=== PATIENT | female | born 1960 | race Caucasian/White ===

== ENCOUNTER 2022-07-11 09:33 | Emergency (ER) | payer OTHER, SELFPAY ==
--- NOTE | ~2022-07-11 | CT_ITS ---
EXAMINATION:CT diagnostic chest wo con DATE: 07/11/2022 12:11 INDICATION: Right breast pain. Right chest wall lipoma resection. TECHNIQUE: Computed tomography (CT) of the chest was performed without intravenous contrast. Automate d exposure control and iterative reconstruction technique were employed. The dose-length product (DLP ) was 140.52 mGy-cm. COMPARISON: None. FINDINGS: There is mild scarring at the lung apices. There is minimal atelectasis bilaterally. No ple ural effusion. The heart size is normal. No pericardial effusion. There is a fundoplication of the pr oximal stomach with the wrap above the diaphragm. There are multiple stones in left kidney measuring up to 4 mm. There is fat stranding in outer inferior right breast. There is severe cervical spondylos is and mild thoracic spondylosis. There is mild chronic anterior wedging of T8 vertebral body. IMPRESSION: 1. Fat stranding in outer inferior right breast, likely inflammation or scarring given the history of lipoma resection. 2. Fundoplication of the stomach with the wrap above the diaphragm. Reviewed, dictated and finalized at location A. IMPRESSION: 1. Fat stranding in outer inferior right breast, likely inflammation or scarrin g given the history of lipoma resection. 2. Fundoplication of the stomach with the wrap above the diaphragm.
[2022-07-11 09:39] VITALS: BP 144/69; PULSE 57; RESP 18; TEMP 36.4; O2SAT 100
--- NOTE | 2022-07-11 11:34 | ED.GENADULT ---
HPI - General Adult General Chief complaint: Unspecified Stated complaint: breast pain Time Seen by Provider: 07/11/22 11:04 History of Present Illness HPI narrative: Patient is a 62-year-old female here for evaluation of bilateral breast pain x3 weeks. Patient states that her breast will get swollen and inflamed throughout the day and over the past several days she has had a significant amount of pain in the right breast. States that she feels a lump. Has a history of a chest wall lipoma that was removed about a year ago by plastic surgeon, states that area has been hurting her well and she is concerned for recurrence. She contacted her primary care doctor who has ultrasound and mammogram ordered but patient states the pain is too severe to wait. She has attempted Tylenol without relief of her symptoms. No nipple discharge, nipple inversion, history of breast cancer. Related Data Allergies Allergy/AdvReac Type Severity Reaction Status Date / Time No Known Allergies Allergy Unverified 11/19/18 14:22 Review of Systems Review of Systems: Gen.: Denies fevers or chills Eyes: Denies eye pain or visual change ENT: Denies congestion Respiratory: Denies shortness of breath or cough CV: Denies chest pain or palpitations GI: Denies abdominal pain nausea, emesis or diarrhea denies burning, urgency, frequency or hematuria Musculoskeletal: Denies back pain or muscle pain Neuro: Denies numbness, tingling, weakness or focal weakness Skin: Denies rash Except as documented, all other systems reviewed and negative [facility] Social History Social History Smoking status: Never smoker Alcohol intake: current Exam Narrative: APPEARANCE:alert, oriented, NAD Head: Normocephalic and atraumatic. EYES: PERRLA/EOMI, conjunctivae clear NOSE: No nasal drainage EARS: External ear normal in appearance THROAT: Oropharynx is clear. Mucous membranes are moist. NECK: Supple. No adenopathy, no masses. RESPIRATORY: Airway patent, respirations nonlabored. Clear to auscultation bilaterally, no rales, rhonchi, wheezing. CARDIOVASCULAR: Regular rate and rhythm without murmurs, rubs, or gallops. ABDOMINAL: Normoactive bowel sounds. Soft, nontender, nondistended. No rebound tenderness or guarding. MUSCULOSKELETAL: No tenderness to palpation along the posterior or anterior chest wall. Breasts are symmetric. There is no nipple inversion. No masses palpated on exam. No fluctuance, induration, overlying erythema. No significant tenderness to palpation along either breast. NEURO: Normal speech. No focal neurologic deficits. SKIN: Skin is warm and dry. No rashes. PSYCHIATRIC: Normal affect/mood. Course Vital Signs Vital signs: Vital Signs Temperature 97.6 F 07/11/22 09:39 Pulse Rate 57 L 07/11/22 09:39 Respiratory Rate 18 07/11/22 09:39 Blood Pressure 144/69 H 07/11/22 09:39 Pulse Oximetry 100 07/11/22 09:39 Oxygen Delivery Room Air 07/11/22 09:39 Temperature 97.6 F 07/11/22 09:39 Pulse Rate 57 L 07/11/22 09:39 Respiratory Rate 18 07/11/22 09:39 Blood Pressure 144/69 H 07/11/22 09:39 Pulse Oximetry 100 07/11/22 09:39 Oxygen Delivery Room Air 07/11/22 09:39 Medical Decision Making MDM Narrative Medical decision making narrative: Patient is a 62-year-old female here for evaluation of a painful mass that she has felt in her right breast and pain at the site where she had a lipoma removed last year for the past several weeks. No ischemic type chest pain; pain is localized to the breast where she feels a mass. She has had a mammogram and ultrasound ordered by her primary doctor but patient states the pain is too severe to wait. VSS. There is no mass palpated on my exam. No gross abnormalities, no redness, fluctuance or induration, nipple discharge or inversion. Ultrasound was ordered but I was informed that this cannot be done in the ED without a mammogram first, and unfortunately cannot order any mammogram out
== END 2022-07-11 14:27 | disposition home or self-care (01) ==
PROVIDERS: Emergency Provider Physician Assistant
DX: N63.0 Unspecified lump in unspecified breast (principal)
CPT/HCPCS: 71250; 99284

== ENCOUNTER 2024-11-01 19:33 | Emergency (ER) | payer OTHER, SELFPAY ==
--- NOTE | ~2024-11-01 | XR_ITS ---
EXAMINATION: [id number] Exam Date/Time: 11/01/2024 19:48 CDT HISTORY: hit left ribs against counter when jumping up Comparison: None. RESULT: Lines, tubes, and devices: Surgical clip over the left upper quadrant GE junction. Lungs and pleura: Clear. Cardiomediastinal silhouette: Left hemidiaphragm elevation, otherwise unremarkable. Other: No acute upper abdominal finding. Nondisplaced left anterior ninth and 10th rib fractures IMPRESSION: No acute cardiopulmonary process. Nondisplaced left anterior ninth and 10th rib fractures. Reviewed, dictated and finalized at location K.
--- OUTSIDE RECORDS SUMMARY | 2024-11-01 19:37 | XMS_ITS | Referral Summary ---
Author Organization [facility] Address [address] [place] [address] Care Team Providers Care Email Marketing Coordinator Name Role Phone Amelie Boone MD Primary Care Provider Oskar Barrera MD Unavailable [phone] Joey Talley MD Unavailable [phone] Sarah Hanks NP Unavailable Encounters Date Type Department Care Team Description 08/01/2024 11:00 AM CDT Office Visit [facility] [address] [place] [address] Nausea (Primary Dx); Weak from Last 3 Months Allergies Active Allergy Reactions Criticality Noted Date Comments Adhesive Redness Low 03/30/2021 Medications progesterone (PROMETRIUM) 200 mg capsule 03/21/20 22 Active estradioL (ESTRACE) 2 mg tablet Take 0.5 tablets (1 mg total) by mouth daily 10/25/19 23 Active semaglutide (Ozempic) 0.25 mg or 0.5 mg (2 mg/3 mL) pen injector injection Inject 0.5 mg under the skin every 7 days Active aspirin (Enteric Coated Aspirin) 81 mg enteric coated tabletIndications:PA F (paroxysmal atrial fibrillation) Take 1 tablet (81 mg total) by mouth daily 02/14/20 23 Active Additional Information Patient not taking.Reported on 03/07/2024 multivitamin-calcium carb tablet,chewable Take 1 tablet by mouth daily Active Ibsrela 50 mg tablet Take 1 tablet by mouth 2 (two) times a day 03/16/20 Active fluconazole (DIFLUCAN) 200 mg tablet TAKE 1 TABLET BY MOUTH EVERY DAY AT 1ST SIGN OF SYMTPOMS 03/15/20 Active digoxin (LANOXIN) 125 mcg (0.125 mg) tabletIndications:PS VT (paroxysmal supraventricular tachycardia),PAF (paroxysmal atrial fibrillation) Take 1 tablet (125 mcg total) by mouth daily 90 tablet 3 11/08/19 24 025 Active Active Problems Problem Noted Date Diagnosed Date Cervical radiculopathy 02/07/2023 Lumbar radiculopathy 02/07/2023 Lumbar spondylosis 02/07/2023 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 I have recommended an auto titrating CPAP unit with a range of 5-15 cm water pressure with heated humidifier through [employer]. The patient will follow-up with me in 2 months. Murmur, heart 04/14/2022 PAF (paroxysmal atrial fibrillation) 04/11/2022 PSVT (paroxysmal supraventricular tachycardia) 0 04/11/2022 Small intestinal bacterial overgrowth (SIBO) Assessment & Plan (02/17/2022 4:59 PM CARD DOFFER): Thirst these course of Xifaxan. Call if symptoms recur following that. 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 Cooper in [place], [place]. July 2017, she developed an URI with right breast inflammation and swelling. She presented to [facility] (Dr. Mosquera) who evaluated her for a cosmetic revision and planned to remove both implants and perform mastopexies as well. Unfortunately, Her issues with erythema and swelling continued, and she eventually presented to the [facility] ER on 08/15/17 for evaluation. She was admitted to the hospitalist service, and Dr. Jarrett was consulted. The patient underwent right implant removal with cultures (negative) and near-total capsulectomy and closure. The pathology revealed chronic inflammation[facility], [facility], implant capsule, removal: - Histiocytic, neutrophilic and lymphocytic infiltrate with abscess formation and granulation tissue, see microscopic and comment. - No evidence of hematopoietic malignancy. [facility] She subsequently underwent left breast implant capsulectomy and bilateral breast mastopexy. Did not have implants placed. Dr. Gee November 2017 - [facility] I & D left breast persistent seroma. Chest discomfort 04/08/2021 History lipoma of breast 02/10/2021 Overview (04/16/2021): 02/22/2021 Breast, right, 8 o'clock, 10 cm from nipple, needle core biopsy: - Fibroadipose tissue, fibrovascular tissue, nerve tissue, and skeletal muscle - No evidence of malignancy The differential diagnosis includes normal tissue elements, hamartoma and intramuscular lipoma. Patient desired excision as she felt this was enlarging and was painful to her. 04/08/2021 Breast, right, Mag seed localization excisional biopsy: - Predominantly adipose tissue and skeletal muscle tissue, compatible with lipoma with partial intramuscular component, with previous biopsy site and scarring - Benign lymph node with reactive sinus histiocytosis - Mag seed present - Negative for in situ or invasive malignancy Dense breast tissue on mammogram 02/13/2020 Fibrocystic breast changes of both breasts 02/12 Pain in right toe(s) 07/06/2019 Schatzki's ring 03/18/2019 Complication of breast implant 08/16/2017 Pain of breast 07/17/2017 Overview (02/07/2023): 10/07/2020 - [facility] Negative screening mammogram She saw Dr. Saba - (Cardio thoracic surgeon) - Given negative imaging. No further treatment options were recommended. 11/25/2020 [facility] - Right breast sonogram for pain and intermittent swelling of chest wall. No focal fluid collection. The pectoralis muscle is normal. The axillary nerve is normal. Within the deep subcutaneous fat of the right chest wall is an echogenic area fat that corresponds to the area of tenderness. This measures 3.7 x 1.4 x 1.0 cm. Unclear if extending into the chest wall musculature. This is suspected to represent an unencapsulated benign lipoma versus fat necrosis and scarring from prior surgery. Recommend MRI of the chest wall with and without contrast. MRI 12/31/2020 [facility] No focal masses in the right lateral chest wall cassette corresponding to the patient's palpable abnormality. No abnormal signal in the ribs. Lungs are clear. Chest wall muscles are normal in appearance. 01/11/[address] Darren Parrish (pain management) [place] that clinically the symptoms appeared to be from intercostal neuritis. Possibly lipoma producing pressure on nerve. Recommended second opinion thoracic surgery to see if any other treatments before intercostal nerve blocks. 01/19/2021 - 2nd Opinion Dr. Talley ( Thoracic surgeon) He could not correlate her ultrasound findings with any MR or physical exam findings and could not offer her surgical resection for relief of her pain. I offered to present her case at our multidisciplinary chest Conference with [facility] chest radiologist to review her studies. She understands my reluctance to offer her surgical intervention without a more clear radiographic target. She understands pain injection from her picture painter is a reasonable least invasive approach. Dr. Talley presented this case at his multidisciplinary chest and pulmonary conference yesterday. The recommendation was for referral to a breast specialist or intercostal nerve block by her pain specialist. She chose the former was referred to Dr. Barrera. 02/02/2021 - [facility] Right diagnostic mammogram and sonogram. Images of the palpable area of concern right breast are similar in appearance to ultrasound at this facility performed 02/02/2021, allowing for differences in technique. Consider ultrasound-guided core needle biopsy for tissue diagnosis. BI-RADS Category 4: Suspicious-biopsy should be considered Final pathology revealed intramuscular lipoma. Breast pain; Location: None Progress: Stable Added By: Kelly Pacheco Add to Current Problems: YES ProblemStatus: Resolve Anxiety and depression 11/30/2016 Hot flashes 11/30/2016 Female genital symptoms 07/13/2016 Overview (02/07/2023): Pelvic pain; Location: None Progress: Stable Added By: Brandie Rock Add to Current Problems: YES ProblemStatus: Resolve Pelvic pain; Location: None Progress: Stable Added By: Nancy Poole Add to Current Problems: YES ProblemStatus: Current Pelvic pain; Progress: Stable Added By: Susy Dodge Add to Current Problems: NO ProblemStatus: Resolve; Start Date : 09/04/2014 Urinary urgency 07/08/2016 Overview (02/07/2023): Urgency of urination; Progress: Stable Added By: Kerline Larson Add to Current Problems: NO ProblemStatus: Resolve Urgency of urination; Location: None Progress: Stable Added By: Kerline Larson Add to Current Problems: YES ProblemStatus: Current Syncope and collapse 2016 Overview (02/07/2023): Syncope; Progress: Stable Added By: Georgie Gilliam Add to Current Problems: NO ProblemStatus: Resolve Syncope and collapse; Progress: Stable Added By: Georgie Gilliam Add to Current Problems: YES ProblemStatus: Current General symptom 06/11/2015 Overview (02/07/2023): Heat intolerance; Progress: Stable Added By: Lamar Hughes Add to Current Problems: NO ProblemStatus: Resolve Calculus of kidney 08/17/2013 Overview (07/07/2016): Renal calculi History of malignant melanoma 08/17/2013 Overview (07/07/2016): History of malignant melanoma Terminal esophageal web 08/17/2013 Overview (07/07/2016): Schatzki's ring Family history of coronary artery disease 2013 Overview (07/08/2016): Family history of early CAD Gastroesophageal reflux disease 11/23/2011 Overview (02/07/2023): GERD (gastroesophageal reflux disease) Assessment & Plan (02/17/2022 4:58 PM CARD DOFFER): Okay to reduce to 20 mg daily after the current prescription of 40 mg omeprazole is finished. Urinary tract infection 01/31/2011 Resolved Problems Problem Noted Date Diagnosed Date Resolved Date LEONOR (obstructive sleep apnea) 12/19/2022 12/19/2022 Assessment & Plan (12/19/2022 9:27 AM CDT): The patient was diagnosed with obstructive sleep apnea in April 2022. I will have an auto titrating CPAP unit prescribed with a range of 5-15 cm water pressure with heated humidifier through [employer]. She will follow up here in 2 months. Sleep-disordered breathing 04/11/2022 0 12/19/2022 Epigastric pain 12/13/2021 04/14/2022 Assessment & Plan (02/17/2022 4:57 PM CARD DOFFER): Patient is feeling much better at this time even without medication. She is currently going through a course of Xifaxan. She found that after taking a few of the dicyclomine and some Metamucil she felt immediately improved. Still has the problem with alcohol. Currently on omeprazole 40 mg daily and wants to be reduced to 20 mg. Endoscopy shows recurrence of hiatus hernia a 2 cm. The wrap appeared intact however the patient is able to vomit tell me that it may not be quite as tight as is necessary. Bloating 12/13/2021 04/14/2022 Post-operative state 04/21/2021 023 Arthritis of knee 08/17/2013 04/14/2022 Overview (07/08/2016): Arthritis of knee Immunizations Immunization Administration Dates Next Due Influenza, Quadrivalent, Spl it, Preservative Free, Intradermal 02/02/2015 Influenza, Split 01/17/2011,03/13/2010, 9 Influenza, Trivalent, IM (MDV) 01/05/2013 Td, adsorbed 04/03/2002 Tdap 08/04/2011 Social History Tobacco Use Types Packs/Day Years Used Date Smoking Tobacco: Never Smokeless Tobacco: Never Tobacco Cessation:Counseling Given: Not Answered Alcohol Use Standard Drinks/Week Comments Yes 0 (1 standard drink = 0.6 oz pur e alcohol) AUDIT-C Answer Date Recorded Q1: How often do you have a drink containing alc ohol? 2-4 times a month 12/17/2021 Q2: How many drinks containi ng alcohol do you have on a typical day when you are drinking? 1 or 2 12/17/2021 Q3: How often do you have si x or more drinks on one occasion? Never 12/17/2021 Comments No Sex and Gender Information Value Date Recorded Sex Assigned at Not on file Legal Sex Female 7:45 PM CARD DOFFER Gender Identity Not on file Sexual Orientation Not on file Last Filed Vital Signs Vital Sign Reading Time Taken Comments Blood Pressure 122/74 08/01/2024 10:35 AM CDT Pulse 68 08/01/2024 10:34 AM CDT Temperature 36.4 C (97.5 F) 03/12/2023 6:15 AM CARD DOFFER Respiratory Rate 16 03/12/2023 8:24 AM CARD DOFFER Oxygen Saturation 97% 03/07/2024 1:36 PM CARD DOFFER Inhaled Oxygen Concentration - - Weight 66.2 kg (146 lb) 03/07/2024 1:36 PM CARD DOFFER Height 160 cm (5' 3) 03/07/2024 1:36 PM CARD DOFFER Body Mass Index 25.86 03/07/2024 1:36 PM CARD DOFFER Plan of Treatment Not on file Medical Devices Implanted Type Area Food Service Steward Device Identifier Shelf Expiration Date Model / Serial / Lot [employer] [id number] [id number] 18ga 7cm Marker Breast Biopsy - [id number] Implanted:Qty: 1 on 03/30/[address] [facility] [employer] [id number] / / Procedures Procedure Name Priority Date/Time Associated Diagnosis Comments SCREENING MAMMOGRAM BILATERAL W GERMAN Schedule Routine, Read Routine (OP Routine) 07/15/2024 2:43 PM CDT Screening mammogram, encounter for from Last 3 Months or Most Recently Relevant to Health Maintenance Results * Screening Mammogram Bilateral W German (07/15/2024 2:43 PM CDT) Anatomical Region Laterality Modality Breast Bilateral Mammography Narrative 07/16/2024 5:01 PM CDT Mammogram Technique: Bilateral Digital Breast Tomosynthesis, Bilateral C-view 2D Screening mammogram. Views obtained: bilateral craniocaudal and bilateral mediolateral oblique. Computer Aided Detection was performed. Mammogram Findings: The present examination has been compared to prior imaging studies performed at [facility] on 10/13/2020 and 01/20/2023, and at [place], [place] on 10/12/2021. The breasts are heterogeneously dense, which may obscure small masses. There is no suspicious abnormality in either breast. Impression: There is no mammographic evidence of malignancy. Annual screening mammography is recommended. If supplemental screening is desired, breast MRI would be recommended in this patient with heterogeneously dense breasts. OVERALL FINAL ASSESSMENT: BI-RADS CATEGORY 1: Negative. Procedure Note Aminata Barth MD - 07/16/2024 Mammogram Technique: Bilateral Digital Breast Tomosynthesis, Bilateral C-view 2D Screening mammogram. Views obtained: bilateral craniocaudal and bilateral mediolateral oblique. Computer Aided Detection was performed. Mammogram Findings: The present examination has been compared to prior imaging studies performed at [facility] on 10/13/2020 and 01/20/2023, and at [place], [place] on 10/12/2021. The breasts are heterogeneously dense, which may obscure small masses. There is no suspicious abnormality in either breast. Impression: There is no mammographic evidence of malignancy. Annual screening mammography is recommended. If supplemental screeningis desired, breast MRI would be recommended in this patient with heterogeneously dense breasts. OVERALL FINAL ASSESSMENT: BI-RADS CATEGORY 1: Negative. us Self Screening Mammogram IMG MAMMO PROCEDURES Fi nal Result from Last 3 Months or Most Recently Relevant to Health Maintenance Insurance [facility] [place] [address] [place] [address] Member Subscriber Plan / Payer (Ef fective 2022-Present) Name:Abby Wright Relation to Subscriber:Self Name:Abby Wright Payer ID:[id number] ([facility]) Type:[facility] HMO/PPO Address: [place] [phone] Advance Directives For more information, please contact: [phone] * Full Code (Latest Code Status on File) Date Activated Date Inactivated Comments 12/20/2021 9:12 AM 12/20/2021 3:10 PM Care Teams Email Marketing Coordinator Relationship Specialty Start Date End Date Amelie Boone MD PCP - General Family Medicine 02/02/21 Oskar Barrera MD [address] [facility] [address] [address] Consulting Physician Surgical Oncology 03/17/21 Joey Talley MD [address] [facility] [address] [place] [address] Referring Physician Cardiothoracic Surgery 04/16/21 Sarah Hanks NP [address] [facility] [address] [place] [address] Nurse Practitioner Surgery 04/19/21
--- OUTSIDE RECORDS SUMMARY | 2024-11-01 19:37 | XMS_ITS | Clinical Summary ---
Author Organization [facility] Address [address] [place] [address] Care Team Providers Care Beverage Server Name Role Phone Amelie Boone MD Primary Care Provider Oskar Barrera MD Unavailable [phone] Joey Talley MD Unavailable [phone] Sarah Hanks NP Unavailable Allergies Active Allergy Reactions Criticality Noted Date [...] mouth 2 (two) times a day 03/16/20 23 Active fluconazole (DIFLUCAN) 200 mg tablet TAKE [...] (SIBO) Assessment & Plan (02/17/2022 4:59 PM EMS COORDINATOR): Thirst these course of Xifaxan. Call if symptoms recur following that. Nausea and vomiting 12/13/2021 Abdominal pain 12/13/2021 Intercostal neuritis 10/20/2021 Myalgia 10/20/2021 History of elective breast augmentation 04/19/19 Overview (04/19/2021): She underwent bilateral breast augmentation with [employer] Siltex 350 cc implants filled to 400 cc [address] Cooper in [place], [place]. July 2017, she developed an URI with right breast inflammation and swelling. She presented to [facility] (Dr. Mosquera) who evaluated her for a cosmetic revision and planned to remove both implants and perform mastopexies as well. Unfortunately, Her issues with erythema and swelling continued, and she eventually presented to the [facility] ER on 08/15/17 for evaluation. She was admitted to the hospitalist service, and Dr. Jarrett was consulted. The patient underwent right implant removal with cultures (negative) and near-total capsulectomy and closure. The pathology revealed chronic inflammation. [facility] Dr. Gee Breast, right, implant capsule, removal: - Histiocytic, neutrophilic and lymphocytic infiltrate with abscess formation and granulation tissue, see microscopic and comment. - No evidence of hematopoietic malignancy. Kortney Gee She subsequently underwent left breast implant capsulectomy and bilateral breast mastopexy. Did not have implants placed. Dr. Gee November 2017 - [facility] I & D left breast persistent seroma. [...] of breast 07/17/2017 Overview (02/07/2023): 10/07/2020 - [facility] Negative screening mammogram She saw Dr. Saba [...] She saw Dr. Darren Parrish (pain management) [place] that clinically the symptoms appeared to be [...] case at our multidisciplinary chest Conference with [facility] chest radiologist to review her studies. She understands my reluctance to offer her surgical intervention without a more clear radiographic target. 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 Dr. Talley presented this case at his multidisciplinary chest and pulmonary conference yesterday. The recommendation was for referral to a breast specialist or intercostal nerve block by her pain specialist. She chose the former was referred to Dr. Barrera. 02/02/2021 - [facility] Right diagnostic mammogram and sonogram. 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 Overview (07/07/2016): Trent's ring Family history of coronary artery disease 2013 Overview (07/08/2016): Family history of early CAD Gastroesophageal reflux disease 11/23/2011 Overview (02/07/2023): GERD (gastroesophageal reflux disease) Assessment & Plan (02/17/2022 4:58 PM EMS COORDINATOR): Okay to reduce to 20 mg daily [...] 04/14/2022 Assessment & Plan (02/17/2022 4:57 PM EMS COORDINATOR): Patient is feeling much better at this [...] 08/17/2013 04/14/2022 Overview (07/08/2016): Arthritis of knee Encounters Date Type Department Care Team Description 08/01/2024 11:00 AM CDT Office Visit [facility] [address] [place] [address] Nausea (Primary Dx); Weak from Last 3 Months Immunizations Immunization Administration Dates Next Due Influenza, Quadrivalent, Spl it, Preservative Free, Intradermal 02/02/2015 Influenza, Split 01/17/2011,03/13/2010, 9 Influenza, Trivalent, IM (MDV) 01/05/2013 Td, adsorbed 04/03/2002 Tdap 08/04/2011 Surgical History Surgery Date Site/Laterality Comments BREAST BIOPSY 02/22/2021 Right ENDOMETRIAL ABLATION BREAST SURGERY 08/16/2017 Right BREAST MAMMARY IMPLANTS REMOVAL AND WASHOUT BLADDER SUSPENSION EXTRACORPOREAL SHOCK WAVE LITHOTRIPSY CYSTOSCOPY W/ LASER LITHOTRIPSY UPPER GASTROINTESTINAL ENDOSCOPY 12/20/2021 No histopathologic abnormality UPPER GASTROINTESTINAL ENDOSCOPY 12/18/2018 BREAST CAPSULECTOMY 10/19/2017 Left ID SUSPENSION OF BREAST CAPSULECTOMY BREAST MAMMARY IMPLANTS REMOVAL OR EXCHANGE BREAST MASTOPEXY INCISION AND DRAINAGE BREAST ABSCESS 11/22/2017 Left LEFT BREASR SEROMA BREAST EXCISIONAL BIOPSY 04/08/2021 Right Right Breast Mag Seed Localization Excisional Biopsy SKIN BIOPSY 07/06/2011 Right Right buttocks: COMPOUND MELANOCYTIC PROFLIFERATION; PRESENT AT MARGIN SKIN BIOPSY 11/05/2013 Right Right neck: BASAL CELL CARCINOMA, SUPERFICIAL MULTIFOCAL SKIN BIOPSY 04/15/2015 Right A. Right labia: INTRADERMAL MELANOCYTIC NEVUS B. Right breast: INTRADERMAL MELANOCYTIC NEVUS SKIN BIOPSY 02/02/2021 Left Specimen A. SKIN, left shoulder: BASAL CELL CARCINOMA, NODULAR TYPE HM DNA STOOL 08/04/2019 Negative SKIN BIOPSY 03/02/2021 Left Specimen A. SKIN, left shoulder: DERMAL SCAR RESIDUAL BASAL CELL CARCINOMA NOT IDENTIFIED SKIN BIOPSY 07/12/2022 Specimen A. SKIN, anterior crown: BASAL CELL CARCINOMA, INFILTRATIVE PATTERN Medical History Medical History Date Comments Mass of right breast Melanoma (HCC) leg and abdomen History of nephrolithiasis Chronic pain Follows with Dr. Roverto Parrish to has helped her in the past with several different pain injections involving neck, low back, and right foot. Arthritis Lumbar facet arthropathy Documen josué on MRI lumbar spine 2019 PONV (postoperative nausea a nd vomiting) PSVT (paroxysmal supraventri cular tachycardia) 04/11/2022 Palpitations 11/15/2022 PAF (paroxysmal atrial fibrillation) 04/11/2022 Murmur, heart 04/14/2022 Mixed hyperlipidemia 11/15/2022 Low blood pressure reading 11/15/2022 Family history of coronary a rtery disease 08/17/2013 Family history of early CAD Chest discomfort 04/08/2021 Abnormal stress test 11/15/2022 Terminal esophageal web 08/17/2013 Schatzki 's ring Small intestinal bacterial o vergrowth (SIBO) 02/17/2022 Schatzki's ring 03/18/2019 Nausea and vomiting 12/13/2021 Irritable bowel syndrome wit h both constipation and diarrhea 01/10/2023 Gastroesophageal reflux disease 11/23/2011 GERD (gastroesophageal reflux disease) Flank pain 11/15/2022 Abdominal pain 12/13/2021 Vaginitis 02/07/2023 Urinary urgency 07/08/2016 Urgency of urina tion; Progress: Stable Added By: Kerline Larson Add to Current Problems: NO ProblemStatus: Resolve Urgency of urination; Location: None Progress: Stable Added By: Kerline Larson Add to Current Problems: YES ProblemStatus: Current Urinary tract infection 01/31/2011 Recurrent seroma of breast 02/07/2023 Pain of breast 07/17/2017 10/07/2020 - [facility] Negative screening mammogramShe saw Dr. Saba - (Cardio thoracic surgeon) - Given negative imaging. No further treatment options were recommended. 11/25/2020 [facility] - Right breast sonogram for pain and intermittent swelling of chest wall. No focal fluid collection. The pectoralis muscle is normal. The axillary nerve is normal. Within the deep History of elective breast augmentation 04/19/19 She underwent bilateral breast augmentation with [employer] Siltex 350 cc implants filled to 400 cc [address] Cooper in [place], [place]. July 2017, she developed an URI with right breast inflammation and swelling. She presented to [facility] (Dr. Mosquera) who evaluated her for a cosmetic revision and planned to remove both implants and perform mastopexies as well. Unfortunately, Her Fibrocystic breast changes o f both breasts 02/13/2020 Female genital symptoms 07/13/2016 Pelvic p ain; Location: None Progress: Stable Added By: Brandie Rock Add to Current Problems: YES ProblemStatus: Resolve Pelvic pain; Location: None Progress: Stable Added By: Nancy Poole Add to Current Problems: YES ProblemStatus: Current Pelvic pain; Progress: Stable Added By: Susy Dodge Add to Current Problems: NO ProblemStatus: Resolve; Start Date Dense breast tissue on mammogram 02/13/2020 Complication of breast implant 08/16/2017 Calculus of kidney 08/17/2013 Renal calculi History of malignant melanoma 08/17/2013 Hi story of malignant melanoma History lipoma of breast 02/10/2021 021 Breast, right, 8 o'clock, 10 cm from nipple, needle core biopsy: - Fibroadipose tissue, fibrovascular tissue, nerve tissue, and skeletal muscle - No evidence of malignancy The differential diagnosis includes normal tissue elements, hamartoma and intramuscular lipoma. Patient desired excision as she felt this was enlarging and was painful to her. 04/08/2021 Breast, Anxiety and depression 11/30/2016 Sacroiliitis 02/07/2023 Pain in right toe(s) 07/06/2019 Myalgia 10/20/2021 Yao's neuroma of right foot 02/07/2023 Lumbar spondylosis 02/07/2023 Lumbar radiculopathy 02/07/2023 Intercostal neuritis 10/20/2021 Cervical radiculopathy 02/07/2023 LEONOR (obstructive sleep apnea) 04/25/2022 Syncope and collapse 2016 Syncope; Pr ogress: Stable Added By: Georgie Gilliam Add to Current Problems: NO ProblemStatus: Resolve Syncope and collapse; Progress: Stable Added By: Georgie Gilliam Add to Current Problems: YES ProblemStatus: Current Hot flashes 11/30/2016 General symptom 06/11/2015 Heat intolerance ; Progress: Stable Added By: Lamar Hughes Add to Current Problems: NO ProblemStatus: Resolve Chronic fatigue 11/15/2022 Family History Medical History Relation Name Comments Atrial fibrillation Father Diabetes type II Father Stroke Father age 87 of multiple strokes Testicular cancer Father Valvular heart disease Father Depression Mother Stroke Mother of CVA, ag e 84 Relation Name Status Comments Father Mother Social History Tobacco Use Types Packs/Day Years [...] on file Legal Sex Female 7:45 PM EMS COORDINATOR Gender Identity Not on file Sexual Orientation Not on file Obstetrics History Last Filed Vital Signs Vital Sign Reading Time Taken Comments Blood Pressure 122/74 08/01/2024 10:35 AM CDT Pulse 68 08/01/2024 10:34 AM CDT Temperature 36.4 C (97.5 F) 03/12/2023 6:15 AM EMS COORDINATOR Respiratory Rate 16 03/12/2023 8:24 AM EMS COORDINATOR Oxygen Saturation 97% 03/07/2024 1:36 PM EMS COORDINATOR Inhaled Oxygen Concentration - - Weight 66.2 kg (146 lb) 03/07/2024 1:36 PM EMS COORDINATOR Height 160 cm (5' 3) 03/07/2024 1:36 PM EMS COORDINATOR Body Mass Index 25.86 03/07/2024 1:36 PM EMS COORDINATOR Plan of Treatment Health Maintenance Due Date Last Done Comments Cervical Cancer Screening 1962 Colon Cancer Screening-Colonoscopy 1962 Depression Screening 1962 Hepatitis C Screening 1962 Hepatitis B Screening 1980 Regular Well Visit/Exam 18-64 1980 Zoster Vaccine (2 of 2) 08/29/2019 07/04/2019 Covid-19 Vaccine ( season) 2023 11/11/2020, 07/30/2020 Influenza Vaccine (#1) 2024 2, 01/01/2019, 01/22/2018, Additional history exists Breast Cancer Screening-Mammogram 07/15/2025 07/15/2024, 09/22/2022, 10/12/2021, Additional history exists DTaP/Tdap/Td Vaccine (4 - Td or Tdap) 01/28/2032 01/27/2022, 11/30/2016, 08/04/2011, Additional history exists Pneumococcal vaccine <65 Aged Out 03/04/2019 No longer eligible based on patient's age to complete this topic Medical Devices Implanted Type Area Power Ballast Machine Operator Device Identifier Shelf Expiration Date Model / Serial / Lot vocaltap [id number] Magseed 18ga 7cm Marker Breast Biopsy - [id number] Implanted:Qty: 1 on 03/30/2021 at [facility] vocaltap [id number] / / Procedures Procedure Name Priority Date/Time [...] compared to prior imaging studies performed at [facility] on 10/13/2020 and 01/20/2023, and at [facility], [place], [place] on 10/12/2021. The breasts are heterogeneously [...] compared to prior imaging studies performed at [facility] on 10/13/2020 and 01/20/2023, and at [facility], [place], [place] on 10/12/2021. The breasts are heterogeneously [...] Most Recently Relevant to Health Maintenance Insurance [facility] Member Subscriber Plan / Payer (Ef fective 2022-Present) Name:Abby Wright Relation to Subscriber:Spouse Name:VICENTE WRIGHT Date of :1961 (Home) Address: [address] [place] [address] Payer ID:[id number] (NAIC) Type:[facility] HMO/PPO Address: [address] [facility] Advance Directives For more information, please contact: [phone] * Full Code (Latest Code Status on File) Date Activated Date Inactivated Comments 12/20/2021 9:12 AM 12/20/2021 3:10 PM Care Teams Beverage Server Relationship Specialty Start Date End Date Amelie Boone MD PCP - General Family Medicine 02/02/21 Oskar Barrera MD [address] [facility] [address] [place] [address] Consulting Physician Surgical Oncology 03/17/21 Joey Talley MD [address] [place] [address] Referring Physician Cardiothoracic Surgery 04/16/21 Sarah Hanks NP [address] [place] [address] Nurse Practitioner Surgery 04/19/21
--- OUTSIDE RECORDS SUMMARY | 2024-11-01 19:37 | XMS_ITS | Encounter Summary ---
Author Organization [facility] Healthcare Address [address] [place] [address] Care Team Providers Care Supplier Development Manager Name Role Phone Amelie Boone MD Primary Care Provider [phone] Oskar Barrera MD Unavailable [phone] Joey Talley MD Unavailable [phone] Sarah Hanks NP Unavailable [phone] Encounter Details Date Type Department Care Team (Late st Contact Info) Description 07/10/2024 Orders Only [facility] [place] [facility] [address] [place] [id number] Scanning, Provider Social History Tobacco Use Types Packs/Day Years Used Date Smoking Tobacco: Never Smokeless Tobacco: Never Alcohol Use Standard Drinks/Week Comments Yes 0 [...] on file Legal Sex Female 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 Gender Identity Not on file Sexual Orientation Not on file documented as of this encounter Plan of Treatment Not on file documented as of this encounter Procedures Procedure Name Priority Date/Time Associated Diagnosis Comments SCAN - LABS 07/10/2024 documented in this encounter Results * SCAN - LABS (07/10/2024) Provider Scanning Final Result documented in this encounter Visit Diagnoses Not on filedocumented in this encounter Care Teams Supplier Development Manager Relationship Specialty Start Date End Date Amelie Boone MD PCP - General Family Medicine 02/02/21 Oskar Barrera MD [address] [place] [address] Consulting Physician Surgical Oncology 03/17/21 Joey Talley MD [address] [place] [address] Referring Physician Cardiothoracic Surgery 04/16/21 Sarah Hanks NP [address] [place] [address] Nurse Practitioner Surgery 04/19/21 documented as of this encounter
--- OUTSIDE RECORDS SUMMARY | 2024-11-01 19:37 | XMS_ITS | Clinical Summary ---
Author Organization [facility] Address [address] [place] [address] Phone Care Team Providers Care Loan Collector Name Role Phone Elysia Swann MD Primary Care Provider [phone] Allergies Active Allergy Reactions Criticality Noted Date Comments Iodine Itching Low 11/22/2017 No issues with Contrast medium Medications progesterone micronized (PROMETRIUM) 100 mg Capsule Take 100 mg by mouth daily. 8 Active OTHER Estrogen/progest erone/testostero ne combination dissolvable tablet Active Vit C-Vit B-Adwmsh-HkIt-L utein (PRESERVISION) 226 mg-200 unit -5 mg-0.8 mg Capsule Take 1 Capsule by mouth daily. Active Active Problems Problem Noted Date Diagnosed Date Mastodynia 02/13/2020 Dense breast tissue on mammogram 02/13/2020 Fibrocystic breast changes of both breasts 02/12 Pain in right toe(s) 07/06/2019 Schatzki's ring 03/18/2019 History of endometriosis 03/18/2019 History of endometrial ablation 03/18/2019 History of breast augmentation 11/12/2017 Complication of breast implant 08/16/2017 Hot flashes 11/30/2016 Anxiety and depression 11/30/2016 Arthritis of knee 08/17/2013 Overview (03/18/2019): Overview: Arthritis of knee Calculus of kidney 08/17/2013 Overview (03/18/2019): Overview: Renal calculi Gastroesophageal reflux disease 08/17/2013 Overview (03/18/2019): Overview: GERD (gastroesophageal reflux disease) History of malignant melanoma 08/17/2013 Overview (03/18/2019): Overview: History of malignant melanoma Terminal esophageal web 08/17/2013 Overview (03/18/2019): Overview: Olivia hernandez Encounter for cosmetic surgery Recurrent seroma of breast Resolved Problems Problem Noted Date Diagnosed Date Resolved Date Acute mastitis 08/16/2017 10/29/2017 Cellulitis of breast 018 Immunizations Immunization Administration Dates Next Due (ADACEL/BOOSTRIX)(10 YR UP) TDAP VACCINE, 0.5ML, IM 11/30/2016,08/04/2011 (PREVNAR 13)(6 WKS UP) PNEUM OCOCCAL CONJUGATE (PCV13) 0.5 ML, IM 03/04/2019 (SHINGRIX)(50 YRS UP) ZOSTER VACCINE RECOMBINANT, 0.5 ML, IM 07/04/2019 (TDVAX)(7 YRS UP) TETANUS AN D DIPHTHERIA TOXOIDS, ADSORBED (2 LF OF TETANUS TOXOID AND 2 LF OF DIPHTHERIA TOXOID), 0.5ML (PF), IM 04/03/2002 INFLUENZA VACCINE QUADRIVALE NT 6 MOS UP CELL DERIVED PF IM 01/01/2019 INFLUENZA VACCINE QUADRIVALE NT 6 MOS UP PF IM 01/23/2018 Influenza Seasonal Unspecifi ed Formulation IM 01/17/2011,03/13/2010,02/01/2009 Influenza Vaccine Quad Split (18-64) Pf Id 02/02 Influenza Vaccine Tri Split 4+ Im 01/05/2013 Family History Medical History Relation Name Comments Diabetes Father Heart Disease Father Hypertension Father Heart Disease Maternal Grandfather Heart Disease Maternal Grandmother ADHD Mother memory loss Other Mother memory loss Relation Name Status Comments Father Maternal Grandfather (Age 65) Maternal Grandmother (Age 65) Mother Paternal Grandfather tubercu losis Paternal Grandmother old ag e Social History Tobacco Use Types Packs/Day Years Used Date Smoking Tobacco: Never Smokeless Tobacco: Never Tobacco Cessation:Counseling Given: Yes Alcohol Use Standard Drinks/Week Comments Yes 7 (1 standard drink = 0.6 oz pure alcohol) Social week, sometimes none and sometimes 7 Comments No Sex and Gender Information Value Date Recorded Sex Assigned at Not on file Legal Sex Female 3:29 PM CDT Gender Identity Not on file Sexual Orientation Not on file Last Filed Vital Signs Vital Sign Reading Time Taken Comments Blood Pressure 110/76 02/13/2020 12:05 PM PROMOTIONS ASSISTANT SALES MARKETING Pulse 63 12/16/2020 9:58 AM CDT Temperature 37.1 C (98.8 F) 02/09/2020 10:52 AM PROMOTIONS ASSISTANT SALES MARKETING Respiratory Rate 18 02/09/2020 2:00 PM PROMOTIONS ASSISTANT SALES MARKETING Oxygen Saturation 99% 12/16/2020 9:58 AM CDT Inhaled Oxygen Concentration - - Weight 63.5 kg (140 lb) 12/16/2020 9:58 AM CDT Height 160 cm (5' 3) 12/16/2020 9:58 AM CDT Body Mass Index 24.8 12/16/2020 9:58 AM CDT Plan of Treatment Health Maintenance Due Date Last Done Comments HPV/Cotest (21-29) 1983 CERVICAL CANCER SCREENING 1992 HPV/Cotest (30-65) 1992 PAP SMEAR 1992 FIT/FOBT Q 1 year 2007 Flex Sig/CT Colonography Q 5 years 2007 ZOSTER VACCINE (2 of 2) 08/29/2019 07/04/2019 BREAST CANCER SCREENING 02/22/2022 02/23/20 21, 10/07/2020, 02/11/2020, Additional history exists FIT-DNA Q 3 years 08/03/2022 08/04/2019 COLORECTAL SCREENING 05/06/2023 05/06/2020, 08/04/19 20 Colorectal Cancer Screening 05/06/2023 Preventative Visit- Commercial 04/03/2024 03/04/2019 , 11/30/2016 INFLUENZA VACCINE (#1) 2024 9, 01/23/2018, 02/02/2015, Additional history exists DTAP/TDAP/TD VACCINES (3 - T d or Tdap) 11/30/2026 11/30/2016, 08/04/2011, 04/03/2002 RSV VACCINE (60+ or ) (1 - 1-dose 75+ series) 2037 Medical Devices Implanted Type Area Air Hose Coupler Device Identifier Shelf Expiration Date Model / Serial / Lot Hemostat Susie Surg Mph Pwd 3gm [id number] - [id number] Implanted:Qty : 1 on 10/19/2017 by Joey Gee MD at [facility] Right: Breast CR [employer] 02/19/2019 [id number] / / [id number] Explanted Type Area Air Hose Coupler Device Identifier Shelf Expiration Date Model / Serial / Lot [place] Draft Explanted:Qty: 1 on 10/19/2017 by Joey Gee MD at [facility] Right: Breast Description:no information a vailable Breast Explanted:Qty: 1 on 08/16/2017 by Jennifer Jarrett MD at [facility] Right: Breast Description:right breastmamm meena implant Procedures Procedure Name Priority Date/Time Associated Diagnosis Comments MAMMO DIAG UNI RIGHT 3D BERNA W OR WO CAD Routine 02/11/2020 11:05 AM PROMOTIONS ASSISTANT SALES MARKETING Breast pain COLON CANCER SCREEN, STOOL DNA Routine 08/04/2019 1:00 PM CDT Screening for colon cancer from Last 3 Months or Most Recently Relevant to Health Maintenance Results * MAMMO DIAG UNI RIGHT 3D BERNA W OR WO CAD (02/11/2020 11:05 AM PROMOTIONS ASSISTANT SALES MARKETING) Anatomical Region Laterality Modality Breast Right Mammography 02/11/2020 11:0 7 AM PROMOTIONS ASSISTANT SALES MARKETING Impressions 02/11/2020 4:46 PM PROMOTIONS ASSISTANT SALES MARKETING IMPRESSION: No change and no mammographic evidence of malignancy. Routine follow-up is recommended. OVERALL FINAL ASSESSMENT: BI-RADS CATEGORY 1: Negative. DICTATION LOCATION: [facility] Narrative 02/11/2020 4:46 PM PROMOTIONS ASSISTANT SALES MARKETING DIGITAL DIAGNOSTIC UNILATERAL RIGHT MAMMOGRAPHY WITH CAD WITH TOMOSYNTHESIS 02/11/2020. CLINICAL HISTORY: Diffuse right breast pain. Prior implant removal and breast lift. Comparison is made to prior outside mammograms dated 10/02/2027, 07/25/2018 and 07/18/2017. TECHNIQUE: Low-dose full-field digital unilateral breast tomosynthesis exam was performed with 2-D and 3-D acquisitions. Exam is read in conjunction with CAD. 4 views were obtained. FINDINGS: The breast parenchyma is heterogeneously dense and the parenchymal pattern is stable. There is no dominant mass, spiculation, architectural distortion, skin thickening or malignant calcifications. Procedure Note Purvi Kidd MD - 02/11/2020 DIGITAL DIAGNOSTIC UNILATERAL RIGHT MAMMOGRAPHY WITH CAD WITH TOMOSYNTHESIS 02/11/2020. CLINICAL HISTORY: Diffuse right breast pain. Prior implant removal and breast lift. Comparison is made to prior outside mammograms dated 10/02/2027, 07/25/2018 and 07/18/2017. TECHNIQUE: Low-dose full-field digital unilateral breast tomosynthesis exam was performed with 2-D and 3-D acquisitions. Exam is read in conjunction with CAD. 4 views were obtained. FINDINGS: The breast parenchyma is heterogeneously dense and the parenchymal pattern is stable. There is no dominant mass, spiculation, architectural distortion, skin thickening or malignant calcifications. IMPRESSION: No change and no mammographic evidence of malignancy. Routine follow-up is recommended. OVERALL FINAL ASSESSMENT: BI-RADS CATEGORY 1: Negative. DICTATION LOCATION: [facility] Yojanarandell Mckoy MD MAMMO ORDERABLES Final R esult * COLON CANCER SCREEN, STOOL DNA (08/04/2019 1:00 PM CDT) COLOGUARD RESULT Negative Not Applicable [facility] Comment: A negative result indicates a low likelihood that a colorectal cancer (CRC) or an advanced adenoma (adenomatous polyps with more advanced pre-malignant features) is present. The chance that a person with a negative Cologuard test has a colorectal cancer is less than 1 in 1500 (negative predictive value >99.9%) or has an advanced adenoma is less than 5.3% (negative predictive value 94.7%). These data are based on a prospective cross-sectional screening study of 10,000 individuals at average risk for colorectal cancer who were screened with both Cologuard and colonoscopy. (Bashir Madrigal al, N Engl J Med 2014;370(14):1360-3446) The normal value (reference range) for this assay is negative. COLOGUARD RE-SCREENING RECOMMENDATION: Periodic routine colorectal cancer screening is an important part of preventive healthcare for asymptomatic persons at average risk for colorectal cancer. Following a negative Cologuard result, the [place] Cancer Society and U.S. Multi-Society Task Force screening guidelines recommend a Cologuard re-screening interval of 3 years. References: [place] Cancer Society (ACS). Colorectal cancer prevention and early detection. [place], [place]: [place] Cancer Society; [updated 2016 Jul 25]. https://www.cancer.org/cancer/qwlce-nvtgot-rilftt/aggadvzbr-zfqemqesl-tqqessk/ac s-rec ommendations.html. Accessed December 01, 2017; Jorge Alberto DK, Hugo HAND, Mayda DanielleK, Colorectal Cancer Screening: Recommendations for Physicians and Patients from the U.S. Multi-Society Task Force on Colorectal Cancer Screening, Am J Gastroenterology 2017; 112:5121-8754. TEST TYPE: Composite algorithmic analysis of stool DNA-biomarkers with hemoglobin immunoassay. Quantitative values of individual biomarkers are not reportable and are not associated with individual biomarker result reference ranges. PRECAUTIONS AND LIMITATIONS: Cologuard is intended for colorectal cancer screening of adults of either sex, 45 years or older, who are at average-risk for colorectal cancer (CRC). Cologuard has been approved for use by the U.S. FDA. Cologuard may produce a false negative or false positive result. A negative Cologuard test result does not guarantee the absence of CRC or advanced adenoma (pre-cancer). Patients with a negative Cologuard test result should be advised to continue participating in a colorectal cancer screening program. The screening interval for Cologuard is currently recommended at an interval of every 3 years by the [place] Cancer Society and U.S. Multi-Society Task Force. A false positive result occurs when Cologuard produces a positive result, even though a colonoscopy may not find colorectal cancer or precancerous polyps. The performance of Cologuard has been established in a cross sectional study (i.e., single point in time) of average-risk adults aged 50-84. Cologuard performance in patients ages 45 to 49 years was estimated by sub-group analysis of near-age groups. Cologuard performance data in a 10,000 patient pivotal study using colonoscopy as the reference method can be accessed at the following location: www.[employer].Acer/results. Additional description of the Cologuard test process, warnings and precautions can be found at www.cologuardtest.com. Rx only. Stool STOOL SPECIMEN / Unknown 08/04/2019 1:00 PM CDT 08/06/2019 5:25 PM CDT Elysia Swann MD BODY FLUIDS AND STOOLS Final Re sult [employer] ISA # [id number] [address] , [address] [place] [address] from Last 3 Months or Most Recently Relevant to Health Maintenance Insurance RX [employer] Advance Directives For more information, please contact: [phone] * Full Code (Latest Code Status on File) Date Activated Date Inactivated Comments 11/22/2017 12:18 PM 11/22/2017 6:33 PM * Full Code Date Activated Date Inactivated Comments 11/22/2017 11:18 AM 11/22/2017 12:18 PM * Full Code Date Activated Date Inactivated Comments 10/19/2017 8:15 AM 10/19/2017 1:22 PM * Full Code Date Activated Date Inactivated Comments 10/19/2017 7:00 AM 10/19/2017 8:15 AM * Full Code Date Activated Date Inactivated Comments 08/16/2017 12:08 AM 08/17/2017 1:40 PM Care Teams Loan Collector Relationship Specialty [place] [address] [place] [address] PCP - General Internal Medicine 03/14/19
--- OUTSIDE RECORDS SUMMARY | 2024-11-01 19:38 | XMS_ITS | Encounter Summary ---
Author Organization [facility] Address [address] [place] [address] Care Team Providers Care Scrubber Operator Name Role Phone Unavailable Primary Care Provider Unavailabl e Encounter Details Date Type Department Care Team (Late st Contact Info) Description 01/11/2024 Lab Requisition [facility] - DermPath Lab [address] [facility], [facility] [place] [id number] Gretchen Brennan MD [address] [place] [address] Social History Tobacco Use Types Packs/Day Years Used Date Smoking Tobacco: Never Assessed Comments Unknown Sex and Gender Information Value Date Recorded Sex Assigned at Not on file Legal Sex Female 6:05 PM SUPERVISOR STAVE CUTTING Gender Identity Not on file Sexual Orientation Not on file documented as of this encounter Plan of Treatment Not on file documented as of this encounter Procedures Procedure Name Priority Date/Time Associated Diagnosis Comments DERMATOPATHOLOGY Routine 01/11/2024 11:1 0 AM CDT documented in this encounter Results * DERMATOPATHOLOGY (01/11/2024 11:10 AM CDT) Case Report Dermatopathology Report Case: [id number] Authorizing Provider: Gretchen Brennan MD Collected: 01/11/2024 11:10 AM Ordering Location: [facility] - Received: 01/12/2024 07:08 AM DermPath Lab Pathologist: Atiya Grigsby MD Specimen: Skin, right lateral lower leg 2:28 PM CDT DERMATOPATHOLOGY LABORATORY Final Diagnosis Specimen A. SKIN, right lateral lower leg: SQUAMOUS CELL CARCINOMA IN-SITU, PAGETOID TYPE (D04.71) 2:28 PM CDT DERMATOPATHOLOGY LABORATORY at 1428 CDT Clinical History R/O SCC, growing. 2:28 PM CDT DERMATOPATHOLOGY LABORATORY Gross Description Specimen A: Received is one formalin filled container labeled with the patient's name and designated right lateral lower leg. The specimen consists of a shave biopsy measuring 10x7x1 mm. Jar 0. 2:28 PM CDT DERMATOPATHOLOGY LABORATORY Microscopic Description Specimen A. SKIN, right lateral lower leg: Sections show nests of cells with pale cytoplasm and thin strands of relatively normal keratinocytes intervening. There is overlying parakeratosis. 2:28 PM CDT DERMATOPATHOLOGY LABORATORY Disclaimer An external and internal positive and negative controls are appropriate for the histochemical, immunohistochemical and immunofluorescence stain(s) in this case (if any), except where stated explicitly. The performance characteristics of the stain(s) cited in this report were developed and its performance characteristic determined by the Dermatopathology Laboratory at [facility], directed by Dr. Robert Ortiz. These tests need not be, and therefore are not, approved by the [place] Food and Drug Administration. The tests are used for clinical purposes. Billing Codes Specimen Charges Stain Charges 03588 1 2:28 PM CDT DERMATOPATHOLOGY LABORATORY Embedded Images 2:28 PM CDT DERMATOPATHOLOGY LABORATORY Pathology/Cytolo gy TISSUE SPECIMEN FROM SKIN / Unknown 01/11/2024 11:10 AM CDT 01/12/2024 7:08 AM CDT us Gretchen Brennan MD LAB - PATHOLOGY/CYTOLOGY OR DERABLES Final Result DERMATOPATHOLOGY LABORATORY [facility] - Department of Dermatology [address] [place] [address], [facility] [phone] documented in this encounter Visit Diagnoses Not on filedocumented in this encounter
--- OUTSIDE RECORDS SUMMARY | 2024-11-01 19:38 | XMS_ITS | Clinical Summary ---
Author Organization [facility] Address [facility] [place] [address] Care Team Providers Care Engraving Plate Maker Name Role Phone Elysia Swann MD Primary Care Provider [phone] Allergies No known active allergies Medications fish oil 1000 MG Cap capsule Take 1,000 mg by mouth 2 (two) times daily. Active Estradiol (EVAMIST) 1.53 MG/SPRAY Solution Active progesterone 100 MG capsule Take 100 mg by mouth daily. Active methylPREDNISol one, AKSHAT, (MEDROL DOSEPAK) 4 MG tablet 6 TABLETS ON DAY ONE, 5 TABLETS DAY TWO, 4 TABLETS DAY THREE, 3 TABLETS DAY FOUR, 2 TABLETS DAY FIVE, AND 1 TABLET DAY SIX 1 each 04/01/2022 Active Family History Medical History Relation Comments Diabetes Father Hypertension Father Stroke Mother Relation Status Comments Father Mother Social History Tobacco Use Types Packs/Day Years Used Date Smoking Tobacco: Never Smokeless Tobacco: Never Alcohol Use Standard Drinks/Week Comments Yes 5 (1 standard drink = 0.6 oz pur e alcohol) Comments No Sex and Gender Information Value Date Recorded Sex Assigned at Not on file Legal Sex Female 6:33 PM CDT Gender Identity Not on file Sexual Orientation Not on file Last Filed Vital Signs Vital Sign Reading Time Taken Comments Blood Pressure 138/84 04/01/2022 6:45 PM MANAGER MEMBERSHIP Pulse 66 04/01/2022 6:45 PM MANAGER MEMBERSHIP Temperature 36.8 C (98.2 F) 04/01/2022 4:07 PM MANAGER MEMBERSHIP Respiratory Rate 16 04/01/2022 6:45 PM MANAGER MEMBERSHIP Oxygen Saturation 100% 04/01/2022 6:45 PM MANAGER MEMBERSHIP Inhaled Oxygen Concentration - - Weight 65.8 kg (145 lb) 04/01/2022 4:07 PM MANAGER MEMBERSHIP Height 160 cm (5' 3) 04/01/2022 4:07 PM MANAGER MEMBERSHIP Body Mass Index 25.69 04/01/2022 4:07 PM MANAGER MEMBERSHIP Plan of Treatment Health Maintenance Due Date Last Done Comments Cervical Cancer Screening Pa p Smear (Age 30 to 64) Every 3 Years 1962 Colorectal Cancer Screening Colonoscopy (10 Years) 1962 Annual Physical 1965 Hepatitis C 1980 Cervical Cancer Screening Pa p with HPV Testing (Age 30 to 64) Every 5 Years 1992 Cervical Cancer Screening wi th HPV 1992 Mammogram Screening 2002 Zoster Vaccines (2 of 2) 08/29/2019 07/04/2019 Pneumococcal Vaccine: 50+ Years (2 of 2 - PPSV23) 03/04/2020 03/04/2019 COVID-19 Vaccine (1 - 2023-2 5 season) 2023 DTaP, Tdap and Td Vaccines ( 3 - Td or Tdap) 11/30/2026 11/30/2016, 08/04/2011, 04/03/2002 RSV Immunization or 60+ Years (1 - 1-dose 75+ series) 2037 Meningococcal B Vaccine Aged Out No l onger eligible based on patient's age to complete this topic Meningococcal Vaccine Aged Out No kati nick eligible based on patient's age to complete this topic RSV Immunizations Under 20 Months Aged Out No longer eligible b ased on patient's age to complete this topic Insurance Care Teams Engraving Plate Maker Relationship Specialty Start Date End Date Elysia Swann MD [address] [place] [address] PCP - General INTERNAL MEDICINE 02/03/20
--- OUTSIDE RECORDS SUMMARY | 2024-11-01 19:38 | XMS_ITS | Encounter Summary ---
Author Organization [facility] Address [address] [place] [address] Care Team Providers Care Ointment Mill Tender Name Role Phone Unavailable Primary Care Provider Unavailabl e Encounter Details Date Type Department Care Team (Late st Contact Info) Description 03/05/2024 Lab Requisition [facility] - DermPath Lab [address] [facility], [facility] [place] [phone] Dian Pérez MD [address] [place] [address] Social History Tobacco Use Types Packs/Day Years Used Date Smoking Tobacco: Never Assessed Comments Unknown Sex and Gender Information Value Date Recorded Sex Assigned at Not on file Legal Sex Female 6:05 PM FINAL ASSEMBLY INSPECTOR Gender Identity Not on file Sexual Orientation Not on file documented as of this encounter Plan of Treatment Not on file documented as of this encounter Procedures Procedure Name Priority Date/Time Associated Diagnosis Comments DERMATOPATHOLOGY Routine 03/05/2024 3:15 PM FINAL ASSEMBLY INSPECTOR documented in this encounter Results * DERMATOPATHOLOGY (03/05/2024 3:15 PM FINAL ASSEMBLY INSPECTOR) Case Report Dermatopathology Report Case: [id number] Authorizing Provider: Dian Pérez MD Collected: 03/05/2024 03:15 PM Ordering Location: [facility] - Received: 03/06/2024 03:06 PM DermPath Lab Pathologist: Vira Garcia MD Specimen: Skin, right lateral lower leg 4:48 PM FINAL ASSEMBLY INSPECTOR DERMATOPATHOLOGY LABORATORY Final Diagnosis Specimen A. 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 Check margins 4 4:48 PM [facility] DERMATOPATHOLOGY LABORATORY Gross Description Specimen A: Received is one formalin filled container labeled with the patient's name and designated right lateral lower leg.The specimen consists of an ellipse measuring 29c37f5 mm and is oriented with the notch at the 12 o'clock position labeled on the requisition as notch superior. The 12 to 6 o'clock margin is inked green. The 6 o'clock to 12 o'clock margin is inked red. The 12 o'clock tip is submitted in cassette 1. The 6 o'clock tip is submitted in cassette 2. The remainder of the ellipse is serially sectioned and submitted in cassettes 3-6. Jar 0. 4:48 PM [facility] DERMATOPATHOLOGY LABORATORY Microscopic Description Specimen A. SKIN, right lateral lower leg: Sections show a zone of fibrosis, representing a prior biopsy or surgical site, flanked by a proliferation of atypical keratinocytes that confluently replaces zones of the adjacent epidermis. 4:48 PM [facility] DERMATOPATHOLOGY LABORATORY Disclaimer An external and internal positive and negative controls are appropriate for the histochemical, immunohistochemical and immunofluorescence stain(s) in this case (if any), except where stated explicitly. The performance characteristics of the stain(s) cited in this report were developed and its performance characteristic determined by the Dermatopathology Laboratory at [facility], directed by Dr. Robert Ortiz. These tests need not be, and therefore are not, approved by the [place] Food and Drug Administration. The tests are used for clinical purposes. Billing Codes Specimen Charges Stain Charges 66816 1 4 4:48 PM [facility] DERMATOPATHOLOGY LABORATORY Embedded Images 4 4:48 PM [facility] DERMATOPATHOLOGY LABORATORY Pathology/Cytolo gy TISSUE SPECIMEN FROM SKIN / Unknown 03/05/2024 3:15 PM FINAL ASSEMBLY INSPECTOR 03/06/2024 3:06 PM FINAL ASSEMBLY INSPECTOR Dian Pérez MD LAB - PATHOLOGY/CYTOLOGY ORD ERABLES Final Result DERMATOPATHOLOGY LABORATORY [facility] - Department of Dermatology [facility] [facility], [address] [phone] documented in this encounter Visit Diagnoses Not on filedocumented in this encounter
--- OUTSIDE RECORDS SUMMARY | 2024-11-01 19:38 | XMS_ITS | Patient Health Record ---
Author Organization [facility] [employer] [facility] Address [address] [address] Care Team Providers Care Head Refrigeration Engineer Name Role Phone Elysia Swann Primary Care Provider SCOTT Reyes Unavailable [phone] Allergies No Known Allergies Reason For Referral No Information Medications Medication SIG (Take, Route, Fr equency, Duration) Notes Start Date End Date Status HRT Cream Base Women Active Problems Problem Type SNOMED Code ICD Code Onset Dates Problem Status W/U Status Risk Notes Problem Sacroiliitis (61621920) Sacroiliitis (M46.1) Active confirmed Problem Lumbar radiculopathy (145939962) Lumbar radiculopathy (M54.16) Active confirmed Problem Cervical radiculopathy (16354819) Cervical radiculopathy (M54.12) Active confirmed Problem Intercostal neuralgia (finding) (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 Problem Lumbar spondylosis (497264764) Lumbar spondylosis (M47.816) Active confirmed Problem Yao's neuroma of right foot (456957154683922) 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
--- OUTSIDE RECORDS SUMMARY | 2024-11-01 19:38 | XMS_ITS | Clinical Summary ---
Author Organization [facility] Address [address] [place] [address] Care Team Providers Care Internet Sales Representative Name Role Phone Unavailable Primary Care Provider Unavailabl e Source Comments [facility],non-owned Affiliates and Associated Physician Practices is amultiple site organization consisting of ambulatory clinics and hospital sitesin [place], [place], [place] and [place]. This disclosure is being madepursuant to the Care Everywhere program and may not contain all information available regarding this patient. 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 Gender Identity Not on file Sexual Orientation Not on file Plan of Treatment Health Maintenance Due Date Last Done Comments COLOGUARD (AGES 45-75) - COL ON CA SCREENING 1962 COLON MONITORING 1962 COLONOSCOPY - COLON CA SCREENING 1962 CT COLONOGRAPHY - COLON CA SCREENING 1962 Colorectal Cancer Screening 1962 FIT - COLON CA SCREENING 1962 FLEX SIG - COLON CA SCREENING 1962 LIPID TESTING 1962 MAMMOGRAM 1962 HIV SCREENING 1977 HEPATITIS C SCREENING 03/31/1980 DTAP/TDAP/TD VACCINES (1 - Tdap) 1981 PAP SMEAR 1983 PNEUMOCOCCAL VACCINE 50+ (1 of 1 - PCV) 2012 ZOSTER VACCINE (1 of 2) 2012 COVID-19 VACCINE ( - 2023-2 5 season) 2023 DEPRESSION SCREENING 04/03/2024 INFLUENZA VACCINE (#1) 2024 Respiratory Syncytial Virus (RSV) Vaccine Pt: or over 60 yrs (1 - 1-dose 75+ series) 2037 HEPATITIS B VACCINE Aged Out No longe r eligible based on patient's age to complete this topic HIB VACCINE Aged Out No longer eligi ble based on patient's age to complete this topic HPV VACCINE Aged Out No longer eligi ble based on patient's age to complete this topic MENINGOCOCCAL (Group B) VACC INE SHARED DECISION-MAKING Aged Out No longer eligibl e based on patient's age to complete this topic MENINGOCOCCAL GROUPS A/C/Y/W VACCINE Aged Out No longer eligible b ased on patient's age to complete this topic Insurance [employer]
--- OUTSIDE RECORDS SUMMARY | 2024-11-01 19:38 | XMS_ITS | Patient Health Record ---
Author Organization [facility] Address [address] [place] [address] Reason For Referral No Information Plan Of Treatment No Information
--- OUTSIDE RECORDS SUMMARY | 2024-11-01 19:40 | XMS_ITS | Continuity of Care Document ---
Author Organization [facility]. If a dditional information is needed, contact Health Information Management at [phone] [address] [place] [address] Phone Care Team Providers Care Pastry Cook Apprentice Name Role Phone Unavailable Unavailable Unavailable Unavailable Unavailable Unavailable Unavailable Unavailable Unavailable Encounters pre-admission 20-May-2022 10:30 CHANDLER ROJAS MD (Attending) [facility]
--- NOTE | 2024-11-01 19:46 | ED_ITS ---
HPI - General Adult General Chief complaint: Wound/Laceration Stated complaint: lt rib injury Time Seen by Provider: 11/01/24 19:46 Source: patient Mode of arrival: ambulatory Limitations: no limitations History of Present Illness HPI narrative: 64 yo F presents with pain to L ribs for 2 days. Jumped up onto counter top to fix blinds. Was laying on ribs on edge of counter while fix blinds and rolled onto L ribs and felt popping. Taking tylenol for pain. Pain worse today. No SOB. All systems reviewed and negative except as noted above. Related Data Home Medications ?Medication ?Instructions ?Recorded ?Confirmed ?Last Taken ?Type digoxin 125 mcg (0.125 mg) tablet 11/01/24 Unknown History estradiol 0.01% (0.1 mg/gram) vaginal 11/01/24 Unknown History vaginal cream estradiol 1 mg tablet mg 11/01/24 Unknown History progesterone micronized 100 mg mg 11/01/24 Unknown History capsule Allergies Allergy/AdvReac Type Severity Reaction Status Date / Time No Known Allergies Allergy Verified 11/01/24 19:50 PMFSH Social History Social History Smoking status: Never smoker Alcohol intake: current Comments At time of signature, agree with nursing past medical, surgical, social and family history. There is no relevant family history pertinent to the presenting complaint. Exam Narrative: GENERAL: This is a well-nourished, well-developed patient, in no apparent distress. HEAD: normocephalic, atraumatic. EYES: PERRL. Sclera clear/white. Vision is grossly intact. EARS: External ears normal NOSE: External nose normal NECK: Neck supple, non-tender without lymphadenopathy, masses or thyromegaly. CARDIOVASCULAR: Regular rate and rhythm without murmurs, gallops, or rubs. RESPIRATORY: Clear to auscultation. Breath sounds equal bilaterally. No wheezes, rales, or rhonchi. MUSCULOSKELETAL: tender to anterior and lateral aspect L ribs 6th and 7th. no deformity. no bruising. SKIN: warm, Dry, intact with no suspicious lesions or rash, good texture and turgor. NEURO: awake, alert, and oriented to person, place and time. There were no obvious focal neurologic abnormalities. EXTREMITIES: No joint tenderness, effusion, or edema noted. Course Course Level of Care: Express Care Visit Vital Signs Vital signs: Vital Signs Temperature 36.6 C 11/01/24 19:47 Pulse Rate 76 11/01/24 19:47 Respiratory Rate 14 11/01/24 19:47 Blood Pressure 125/74 11/01/24 19:47 Pulse Oximetry 100 11/01/24 19:47 Oxygen Delivery Room Air 11/01/24 19:47 Temperature 36.6 C 11/01/24 19:47 Pulse Rate 76 11/01/24 19:47 Respiratory Rate 14 11/01/24 19:47 Blood Pressure 125/74 11/01/24 19:47 Pulse Oximetry 100 11/01/24 19:47 Oxygen Delivery Room Air 11/01/24 19:47 reviewed Medical Decision Making MDM Narrative Medical decision making narrative: Rib x-ray shows fracture to night content rib. Discussed results with patient. Patient was offered prescription pain medication she did not feel was necessary. Will continue [id number] pain medications. Recommend ice, rest. Patient instructed how to use incentive spirometer by NOE Rai. Differential Diagnosis Differential Diagnosis: Rib contusion, rib fracture, muscle strain Vital Signs Vital Signs: Vital Signs Temperature 36.6 C 11/01/24 19:47 Pulse Rate 76 11/01/24 19:47 Respiratory Rate 14 11/01/24 19:47 Blood Pressure 125/74 11/01/24 19:47 Pulse Oximetry 100 11/01/24 19:47 Oxygen Delivery Room Air 11/01/24 19:47 Temperature 36.6 C 11/01/24 19:47 Pulse Rate 76 11/01/24 19:47 Respiratory Rate 14 11/01/24 19:47 Blood Pressure 125/74 11/01/24 19:47 Pulse Oximetry 100 11/01/24 19:47 Oxygen Delivery Room Air 11/01/24 19:47 Imaging Data My impression: agree with radiologist Radiologist's impression: EXAMINATION: [id number] Exam Date/Time: 11/01/2024 19:48 CDT HISTORY: hit left ribs against counter when jumping up Comparison: None. RESULT: Lines, tubes, and devices: Surgical clip over the left upper quadrant GE junction. Lungs and pleura: Clear. Cardiomediastinal silhouette: Left hemidiaphragm elevation, otherwise unremarkable. Other: No acute upper abdominal finding. Nondisplaced left anterior ninth and 10th rib fractures IMPRESSION: No acute cardiopulmonary process. Nondisplaced left anterior ninth and 10th rib fractures. Discharge Plan Discharge Clinical Impression: Fracture of left ninth rib, Fracture of left tenth rib Patient Disposition: Home Condition: Stable Instructions: How to Use an Incentive Spirometer (ED), Rib Fracture (ED) Additional Instructions: The x-ray of your left rib showed a fracture to your 9th and 10th rib. Take Tylenol or ibuprofen to treat your pain. Take as directed on packaging. Apply ice as needed for pain. Use incentive spirometer as instructed in discharge packet. Follow-up with your primary care physician to evaluate healing in the next 3-4 weeks. Patient Language: Setswana Prescriptions: No Action estradiol 1 mg tablet digoxin 125 mcg (0.125 mg) tablet estradiol 0.01 % (0.1 mg/gram) cream VAGINAL progesterone micronized 100 mg capsule Follow-up/Referrals: UNKNOWN,DOCTOR [Primary Care Provider] - Time of Disposition: 20:39
[2024-11-01 19:47] VITALS: BP 125/74; PULSE 76; RESP 14; TEMP 36.6; O2SAT 100
== END 2024-11-01 20:42 | disposition home or self-care (01) ==
PROVIDERS: Emergency Provider Nurse Practitioner Family
DX: S22.42XA Multiple fractures of ribs, left side, initial encounter for closed fracture (principal); W22.8XXA Striking against or struck by other objects, initial encounter
CPT/HCPCS: 71101; 99213; G0463